=== PATIENT | female | born 1990 | race Caucasian/White ===

== ENCOUNTER → 2020-06-10 14:22 | Outpatient (CLI) | payer OTHER, SELFPAY ==
--- NOTE | ~2020-06-10 | US_ITS ---
EXAMINATION: US pelvic complete DATE: 06/10/2020 14:38 INDICATION: Pelvic pain. IUD. Comparison:03/13/2018 TECHNIQUE: Multiple transabdominal and endovaginal sonographic images of the pelvis performed. FINDINGS: The uterus measures 8.3 x 3.2 x 4.5 cm. IUD present in the endometrium. The endometrial com plex measures 4 mm. The right ovary measures 2.6 x 2.2 x 2.8 cm and the left ovary measures 3.3 x 2.2 x 3.1 cm. There ar e small follicles in each ovary. There is no free fluid in the pelvis. There are no abnormal masses seen on either side. IMPRESSION: 1. Unremarkable pelvic ultrasound. IUD in expected position. Reviewed, dictated and finalized at location B. LE MECH[employer]IC
== END ==
PROVIDERS: Visit Provider Nurse Practitioner
DX: R10.2 Pelvic and perineal pain (principal); Z97.5 Presence of (intrauterine) contraceptive device
CPT/HCPCS: 76856

== ENCOUNTER → 2020-09-26 10:07 | Outpatient (CLI) | payer OTHER, SELFPAY ==
--- NOTE | ~2020-09-26 | US_ITS ---
EXAMINATION: US soft tissue UE LT DATE: 09/26/2020 10:42 INDICATION: Bruising and lump at the anterior mid left forearm TECHNIQUE: Multiple grayscale and Doppler ultrasound images of the region of concern at the anterior mid left forearm were obtained. COMPARISON: None FINDINGS: 1-2 mm hypoechoic lesion at the region of concern reportedly at the site of prior surgery which could represent mild residual scarring. Otherwise normal appearance to the subcutaneous fat and underlying musculature. No shadowing foreign bodies identified. No other abnormal masses or fluid collections IMPRESSION: 1. 1-2 mm hypoechoic lesion likely residual scarring at the site of a reported prior implantation and explantation of a small metallic disc. Otherwise unremarkable study with no retained foreign bodies, abnormal masses or fluid collections identified. Reviewed, dictated and finalized at location A. IMPRESSION: 1. 1-2 mm hypoechoic lesion likely residual scarring at the site of a reported prior implantation and explantation of a small metallic disc. Otherwise unremar kable study with no retained foreign bodies, abnormal masses or fluid collectio ns identified.
== END ==
DX: R22.32 Localized swelling, mass and lump, left upper limb (principal)
CPT/HCPCS: 76882

== ENCOUNTER 2023-03-12 11:09 | Emergency (ER) | payer BC, SELFPAY ==
--- NOTE | ~2023-03-12 | CT_ITS ---
CT of the Abdomen and Pelvis: Indication: Abdominal pain Technique: 2.5 mm axial scans were obtained through the abdomen and pelvis following intravenous adm inistration of 100 cc of Omnipaque 350. Dose reduction technique was used on this scan by utilizing a utomated exposure control and iterative reconstruction technique. The dose-length product (DLP) was 2 65.25 mGy-cm. COMPARISON: 02/17/2017 Findings: Scans through the lung bases are unremarkable. The liver, spleen, pancreas, gallbladder, adrenals and kidneys are within normal limits. No evidence of aortic aneurysm. No lymphadenopathy. No bowel obstruction or bowel wall thickening. There is no evidence to suggest acute appendicitis. Images through the pelvis were performed. Urinary bladder unremarkable. IUD in place. No definite adn exal mass seen. Trace free fluid in the pelvis is nonspecific. Impression: No significant abnormalities seen. IUD in place. Reviewed, dictated and finalized at [facility]. Impression: No significant abnormalities seen. IUD in place.
[2023-03-12 11:24] VITALS: BP 123/76; PULSE 80; RESP 16; TEMP 36.4; O2SAT 100
[2023-03-12 12:13] LABS: Basophils Percent Auto 0.7 % (0.2-1.2); Eosinophils Absolute Auto 0.2 K/mm3 (0-0.3); Eosinophils Percent Auto 4.6 % (0-4.4); Hematocrit 41.2 % (37.0-47.0); Hemoglobin 13.4 g/dL (12.0-15.0); Immature Granulocyte Absolute 0.01 K/mm3 (0.00-0.031); Immature Granulocyte Percent A 0.2 % (0-0.5); Lymphocytes Absolute Auto 1.87 K/mm3 (0.9-3.2); Lymphocytes Percent Auto 40.6 % (18.3-44.2); Mean Corpuscular HGB Conc 32.5 g/dl (32-36); Mean Corpuscular Hemoglobin 28.4 pg (26-34); Mean Corpuscular Volume 87.3 fl (80-100); Mean Platelet Volume 10.7 fl (7.4-10.4); Monocytes Absolute Auto 0.4 K/mm3 (0.1-0.6); Monocytes Percent Auto 7.8 % (2.6-8.5); Neutrophils Absolute Auto 2.1 K/mm3 (1.3-6.7); Neutrophils Percent Auto 46.1 % (45.5-73.1); Platelet Count Result 229 k/mm3 (150-375); Red Blood Count 4.72 M/mm3 (4.2-5.4); Red Cell Distribution Width 12.5 % (11.5-14.5); White Blood Count 4.6 K/mm3 (4.5-10.0)
[2023-03-12 12:19] LABS: Appearance Urine Cloudy (Clear); Bacteria Urine 1+ /hpf; Bilirubin Urine Negative (Negative); Color Urine Yellow (Yellow); Glucose Urine UA Negative (Negative); Ketones Urine Negative (Negative); Leukocyte Esterase Ur 2+ LEU/UL (Negative); Nitrate Urine Negative (Negative); Non Pathogenic Casts 0-2; Protein Urine Trace mg/dL (Negative); RBC Urine 0-2 /hpf (0-2); Specific Grav Ur 1.029 (1.001-1.035); Squamous Epithelial Cell Urine Few /hpf (Few); WBC Urine >100 /hpf; pH Urine 5.5 (5.0-9.0)
[2023-03-12 12:23] LABS: Alanine Aminotransferase 22 U/L (6-35); Albumin Level 4.3 g/dL (3.5-5.1); Alkaline Phosphatase 65 U/L (38-126); Anion Gap 8 mmol/L (8-16); Aspartate Amino Transferase 27 U/L (14-36); Bilirubin,Total 0.9 mg/dL (0.2-1.3); Blood Urea Nitrogen 23 mg/dL (7-17); Calcium 8.7 mg/dL (8.4-10.2); Carbon Dioxide 27 mmol/L (22-30); Chloride 107 mmol/L (98-107); Estimated CRCL calculation 89 ml/min; Estimated Glomerular Filt Rate > 60; Glucose 92 mg/dL (65-110); Lipase 111 U/L (23-300); Potassium 3.6 mmol/L (3.4-5.0); Sodium 142 mmol/L (137-145)
[2023-03-12 12:44] LABS: Add Urine Microscopic? YES
--- NOTE | 2023-03-12 13:37 | ED.GENADULT ---
HPI - General Adult General Chief complaint: Abdominal Pain Stated complaint: Abdominal Pain Time Seen by Provider: 03/12/23 11:46 Source: patient Mode of arrival: ambulatory Limitations: no limitations History of Present Illness HPI narrative: This is a 32-year-old female who presents to the ED with chief complaint of upper abdominal pain ongoing for the past 2 days. Patient reports the pain is in the left upper quadrant and epigastrium area. She reports she has had this in the past and her doctors thought it was may be acid reflux. She reports no relief with Tums or other antacids. She states her pain is specifically worse after eating food. She does endorse nausea and vomiting. States she had 2 episodes of emesis yesterday and is currently nauseous. Patient states when this is happened in the past it has self resolved. She also endorses a little bit of constipation states her last bowel movement was Monday night. Denies fevers, chills, chest pain, shortness of breath, urinary symptoms, or cough. Related Data Home Medications Medication Instructions Recorded Confirmed cholecalciferol (vitamin D3) 10 10 mcg PO DAILY 01/13/23 02/17/23 mcg (400 unit) capsule (Vitamin D3) loratadine 10 mg tablet (Claritin) 10 mg PO DAILY 01/13/23 02/17/23 methylphenidate HCl 10 mg tablet 10 mg PO BID 01/13/23 02/17/23 vitamin B12 0.5 mg-folic acid 1 mg 1 tablet PO DAILY 01/13/23 02/17/23 tablet Allergies Allergy/AdvReac Type Severity Reaction Status Date / Time amoxicillin Allergy Severe Hives Verified 03/12/23 12:10 Sulfa (Sulfonamide Allergy Severe Hives Verified 03/12/23 12:10 Antibiotics) latex Allergy Mild HIVES Verified 03/12/23 12:10 Review of Systems Review of Systems: All systems as dictated in [facility] Past Medical History Medical History (Updated 03/12/23 @ 14:57 by Kavon Zabala PA-C) History of temporomandibular joint syndrome 2020 had bilateral replacement Surgical History Surgical History History of ankle surgery (2010) x2. 2010 & 2011 History of tonsillectomy Family History Family History (Updated 08/11/23 @ 11:03 by Corinne Gandhi APRN) Mother Hypothyroidism Sibling Hypothyroidism Other Hypothyroidism Grandparent Hypertension Social History Social History (Updated 02/17/23 @ 11:04 by Corinne Gandhi APRN) Smoking status: Never smoker Alcohol intake: current Alcohol use details: occasional, monthly Substance use: never Lack of Transportation: No Lack of Food: Never True Current Housing: I Have Housing Concerned About Future Housing: No Difficulty Paying Gas/Electric Bills: No Difficulty Paying for Meds: No Currently Unemployed: No Education: Bachelor's Degree Difficulty w/ Childcare or Family Care: No Occupation/Education: occupation 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 HEAD: Normocephalic, atraumatic. EYES: PERRLA and EOMI. ENT: Nares clear, no rhinorrhea or epistaxis. Mucous membranes moist. Oropharynx without tonsillar hypertrophy exudate or other lesions. NECK: Supple. No adenopathy or masses. CHEST: No respiratory distress. Clear to auscultation. No wheezes rales or rhonchi HEART: Regular rate and rhythm. No murmur heard. Normal peripheral pulses. ABDOMEN: Left upper quadrant and epigastric tenderness most prominent. She also has a bit of right upper quadrant tenderness. Soft, nondistended, normal active bowel sounds. MSK: Normal range of motion. No edema. SKIN: Warm, dry, no rash. NEURO: Alert and oriented x3. No focal deficits. PSYCH: Normal mood and affect. Course Vital Signs Vital signs: Vital Signs Temperature 97.6 F 03/12/23 11:24 Pulse Rate 80 03/12/23 11:24 Respiratory Rate 16 03/12/23 11:24 Blood Pressure 123/76 09
[2023-03-12] MEDS: ONDANSETRON INJ 4 MG/2 ML VIAL IV PUSH (13:59)
[2023-03-12 14:14] VITALS: BP 95/73; PULSE 64; RESP 20; O2SAT 100
[2023-03-12 14:57] VITALS: BP 126/63; PULSE 54; RESP 20; O2SAT 100
== END 2023-03-12 15:00 | disposition home or self-care (01) ==
PROVIDERS: Emergency Medicine; Emergency Provider Physician Assistant; PCP Family Medicine Adolescent Medicine
DX: K29.70 Gastritis, unspecified, without bleeding (principal); N39.0 Urinary tract infection, site not specified; Z96.698 Presence of other orthopedic joint implants
CPT/HCPCS: 36415; 74177; 80053; 81001; 81025; 83690; 85025; 87086; 87088; 96374; 99284; J2405; Q9967

== ENCOUNTER 2023-11-15 14:45 | Outpatient (CLI) | payer BC, SELFPAY ==
--- NOTE | ~2023-11-15 | US_ITS ---
EXAMINATION: US pelvic complete DATE: 11/15/2023 15:02 INDICATION: Postcoital vaginal bleeding. TECHNIQUE: Multiple transabdominal sonographic images of the pelvis were obtained. COMPARISON: CT abdomen and pelvis 03/12/2023 FINDINGS: The uterus measures 4.9 x 3.1 x 5.0 cm. There is no free fluid in the pelvis. The endometrial complex measures 3 mm in thickness. There is an intrauterine device in expected position. The right ovary me asures 2.8 x 2.6 x 2.8 cm. The left ovary measures 2.6 x 1.5 x 2.4 cm. IMPRESSION: 1. No etiology for the patient's symptoms. 2. Intrauterine device in expected position. Reviewed, dictated and finalized at location A.
== END 2023-11-15 14:46 ==
PROVIDERS: PCP Family Medicine Adolescent Medicine; Visit Provider Nurse Practitioner
DX: N93.0 Postcoital and contact bleeding (principal); Z97.5 Presence of (intrauterine) contraceptive device
CPT/HCPCS: 76856

== ENCOUNTER 2023-12-07 00:22 | Day surgery (SDC) | payer BC, SELFPAY ==
[2023-11-16 14:59] VITALS: BMI 21.6
--- NOTE | 2023-12-06 09:59 | SUR.PREOP ---
Patient arrived to unit for procedure. Patient states she completed all of the prep medications per instructions. Patient states she did not have a bowel movement until 0500 on 12/06/23. Her bowel movements are liquid brown with some substance to them. I talked to Dr. Huddleston and he requested the patient repeat the same bowel prep today and remain on clear liquid diet 12/06/23. Patient was rescheduled for 12/07/23.
[2023-12-07 13:36] VITALS: BP 104/75; PULSE 79; RESP 18; TEMP 36.3; O2SAT 100
[2023-12-07] MEDS: LACTATED RINGERS 1,000 ML 150 ML IV CONT (13:57)
--- NOTE | 2023-12-07 14:15 | WPDANESEPPF ---
Anes - Initial Pre Proc Eval Procedure: Operation Date: 12/07/23 14:30 Proposed Procedures p Esophagogastroduodenoscopy & Colonoscopy - Paul John MD Date/Time: 12/07/23 14:15 Surgeon: Paul John MD Pre Op Diagnosis: Epigastric pain, Gen. Abd. pain, Constipation Patient Data Age: 33 Gender: F Height: 1.65 m Weight: 56.3 kg Last Vital Signs Temp 97.3 F L 12/07/23 13:36 Pulse 79 12/07/23 13:36 Resp 18 12/07/23 13:36 BP 104/75 12/07/23 13:36 Pulse Ox 100 12/07/23 13:36 O2 Del Method Room Air 12/07/23 13:36 Allergies Allergy/AdvReac Type Severity Reaction Status Date / Time amoxicillin Allergy Severe Hives Verified 12/07/23 13:30 Sulfa (Sulfonamide Allergy Severe Hives Verified 12/07/23 13:30 Antibiotics) latex Allergy Mild HIVES Verified 12/07/23 13:30 Home Medications Medication Instructions Recorded Confirmed Type cholecalciferol (vitamin D3) 10 10 mcg PO DAILY 01/13/23 11/16/23 History mcg (400 unit) capsule (Vitamin D3) vitamin B12 0.5 mg-folic acid 1 mg 1 tablet PO DAILY 01/13/23 11/16/23 History tablet cetirizine 10 mg tablet (Zyrtec) 10 mg PO DAILY 11/16/23 11/16/23 History dextroamphetamine-amphetamine 10 10 mg PO DAILY 11/16/23 11/16/23 History mg tablet hydroxyzine HCl 25 mg tablet 25 mg PO HS 11/16/23 11/16/23 History Patient hx anesthesia problems: none Family hx anesthesia problems: none Results Review: All pre-operative results and documents have been reviewed as part of the pre-operative evaluation. [facility] Past Medical History Medical History (Updated 04/24/23 @ 13:13 by Corinne Gandhi APRN) History of temporomandibular joint syndrome 2020 had bilateral replacement Surgical History Surgical History History of ankle surgery (2010) x2. 2010 & 2011 History of tonsillectomy Family History Family History (Updated 02/17/23 @ 11:03 by Corinne Gandhi APRN) Mother Hypothyroidism Sibling Hypothyroidism Other Hypothyroidism Grandparent Hypertension Social History Social History (Updated 02/17/23 @ 11:04 by Corinne Gandhi APRN) Smoking status: Never smoker Alcohol intake: current Alcohol use details: occasional, monthly Substance use: never Lack of Transportation: No Lack of Food: Never True Current Housing: I Have Housing Concerned About Future Housing: No Difficulty Paying Gas/Electric Bills: No Difficulty Paying for Meds: No Currently Unemployed: No Education: Bachelor's Degree Difficulty w/ Childcare or Family Care: No Living arrangements: alone Occupation/Education: occupation 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 Informed Consent: The patient's anesthetic plan and its attendant risks and benefits were discussed with the patient/family/POA. Questions were solicited and answers provided to the satisfaction of the patient/family/POA.
--- NOTE | 2023-12-07 14:18 | PM.HPGS ---
History of Present Illness History of Present Illness Consent: Risks, benefits, and alternatives have been discussed and questions answered. Patient agrees to proceed with procedure. Chief complaint: Epigastric pain, Gen. Abd. pain, Constipation Narrative: Hedy Khan is a 33 year old female with intermittent epigastric pain, also constipation for almost 10 years, never had scopes. Review of Systems Review of Systems: All systems reviewed & are unremarkable except as noted in HPI and below PMFSH Past Medical History Medical History (Updated 04/24/23 @ 13:13 by Corinne Gandhi APRN) History of temporomandibular joint syndrome 2020 had bilateral replacement Surgical History Surgical History History of ankle surgery (2010) x2. 2010 & 2011 History of tonsillectomy Family History Family History (Updated 02/17/23 @ 11:03 by Corinne Gandhi APRN) Mother Hypothyroidism Sibling Hypothyroidism Other Hypothyroidism Grandparent Hypertension Social History Social History (Updated 02/17/23 @ 11:04 by Corinne Gandhi APRN) Smoking status: Never smoker Alcohol intake: current Alcohol use details: occasional, monthly Substance use: never Lack of Transportation: No Lack of Food: Never True Current Housing: I Have Housing Concerned About Future Housing: No Difficulty Paying Gas/Electric Bills: No Difficulty Paying for Meds: No Currently Unemployed: No Education: Bachelor's Degree Difficulty w/ Childcare or Family Care: No Living arrangements: alone Occupation/Education: occupation 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 Spiritual care concerns: No Meds Home Medications and Allergies Home Medications Medication Instructions Recorded Confirmed Type cholecalciferol (vitamin D3) 10 10 mcg PO DAILY 01/13/23 11/16/23 History mcg (400 unit) capsule (Vitamin D3) vitamin B12 0.5 mg-folic acid 1 mg 1 tablet PO DAILY 01/13/23 11/16/23 History tablet cetirizine 10 mg tablet (Zyrtec) 10 mg PO DAILY 11/16/23 11/16/23 History dextroamphetamine-amphetamine 10 10 mg PO DAILY 11/16/23 11/16/23 History mg tablet hydroxyzine HCl 25 mg tablet 25 mg PO HS 11/16/23 11/16/23 History Allergies Allergy/AdvReac Type Severity Reaction Status Date / Time amoxicillin Allergy Severe Hives Verified 12/07/23 13:30 Sulfa (Sulfonamide Allergy Severe Hives Verified 12/07/23 13:30 Antibiotics) latex Allergy Mild HIVES Verified 12/07/23 13:30 Vital Signs Vital Signs - 24 hr 12/07/23 13:36 Temperature 97.3 F L Pulse Rate 79 Respiratory Rate 18 Blood Pressure 104/75 Pulse Oximetry 100 Oxygen Delivery Room Air Exam Const: General: comfortable and no acute distress HENMT: Face/Nose/Sinus: Normal nares present Eyes: General: appearance normal, both eyes and all related structures Neck: Neck: no JVD Resp: Auscultation: clear to auscultation bilaterally Cardio: Rate: regular rate Rhythm: regular rhythm GI: Inspection: non-distended GI Palp: Yes Soft to palpation Skin: General skin exam: normal color Neuro: General: gait normal Speech: normal speech Extrem: General: normal to inspection Psych: Mental Status: mental status grossly normal Assessment and Plan Assessment and plan (1) Constipation: Code(s): K59.00 - Constipation, unspecified Status: Acute Assessment and Plan: colonoscopy (2) Epigastric abdominal pain: Code(s): R10.13 - Epigastric pain Status: Acute Assessment and Plan: egd with bx
--- NOTE | 2023-12-07 14:36 | SUR.OPER ---
EGD ended at 1432, colon began at 1437
[2023-12-07 14:50] VITALS: BP 101/70; PULSE 75; RESP 23; O2SAT 99
[2023-12-07 15:00] VITALS: BP 106/59; PULSE 62; RESP 20; O2SAT 100
[2023-12-07 15:10] VITALS: BP 117/66; PULSE 57; RESP 20; O2SAT 100
== END 2023-12-07 15:23 | disposition home or self-care (01) ==
PROVIDERS: PCP Family Medicine Adolescent Medicine; Visit Provider Internal Medicine Gastroenterology
PROC: 0DJ08ZZ Inspection of Upper Intestinal Tract, Via Natural or Artificial Opening Endoscopic (ICD-10-PCS; CPT 43235; principal; 2023-12-07 14:30)
DX: K29.70 Gastritis, unspecified, without bleeding (principal); K64.8 Other hemorrhoids; K59.00 Constipation, unspecified; Z98.890 Other specified postprocedural states
CPT/HCPCS: 43239; 45378; 88305; J2704; J7120

== ENCOUNTER 2024-03-05 01:05 | Emergency (ER) | payer BC, SELFPAY ==
[2024-03-05 01:06] VITALS: BP 133/90; PULSE 74; RESP 18; TEMP 36.7; O2SAT 98
[2024-03-05 02:02] LABS: Add Urine Microscopic? NO; Appearance Urine Clear (Clear); Bilirubin Urine Negative (Negative); Blood Urine Negative (Negative); Color Urine Yellow (Yellow); Glucose Urine UA Negative (Negative); Ketones Urine Trace mg/dL (Negative); Leukocyte Esterase Ur Negative LEU/UL (Negative); Nitrate Urine Negative (Negative); Protein Urine Negative (Negative); Specific Grav Ur 1.022 (1.001-1.035); Urobilinogen Urine 0.2 mg/dL (<2.0); pH Urine 5.5 (5.0-9.0)
[2024-03-05 03:49] LABS: Urine Pregnancy Test Negative
[2024-03-05 03:50] LABS: Pregnancy On Board Control Positive
[2024-03-05] MEDS: ONDANSETRON INJ 4 MG/2 ML VIAL IV PUSH (04:09)
[2024-03-05] MEDS: SODIUM CHLORIDE 0.9% IV 1,000 ML 999 ML IV CONT (04:09)
[2024-03-05 04:10] LABS: Basophils Absolute Auto 0.1 K/mm3 (0.0-0.1); Basophils Percent Auto 0.6 % (0.2-1.2); Eosinophils Absolute Auto 0.2 K/mm3 (0-0.3); Eosinophils Percent Auto 2.8 % (0-4.4); Hemoglobin 12.7 g/dL (12.0-15.0); Immature Granulocyte Absolute 0.02 K/mm3 (0.00-0.031); Immature Granulocyte Percent A 0.2 % (0-0.5); Lymphocytes Absolute Auto 1.72 K/mm3 (0.9-3.2); Lymphocytes Percent Auto 21.1 % (18.3-44.2); Mean Corpuscular HGB Conc 34.3 g/dl (32-36); Mean Corpuscular Hemoglobin 28.7 pg (26-34); Mean Corpuscular Volume 83.5 fl (80-100); Mean Platelet Volume 10.1 fl (7.4-10.4); Monocytes Absolute Auto 0.6 K/mm3 (0.1-0.6); Monocytes Percent Auto 7.4 % (2.6-8.5); Neutrophils Absolute Auto 5.5 K/mm3 (1.3-6.7); Neutrophils Percent Auto 67.9 % (45.5-73.1); Platelet Count Result 226 k/mm3 (150-375); Red Blood Count 4.43 M/mm3 (4.2-5.4); Red Cell Distribution Width 12.9 % (11.5-14.5); White Blood Count 8.1 K/mm3 (4.5-10.0)
[2024-03-05 04:22] LABS: Alanine Aminotransferase 21 U/L (6-35); Albumin Level 4.1 g/dL (3.5-5.1); Alkaline Phosphatase 48 U/L (38-126); Anion Gap 8 mmol/L (4-12); Aspartate Amino Transferase 27 U/L (14-36); Bilirubin,Total 1.2 mg/dL (0.2-1.3); Blood Urea Nitrogen 15 mg/dL (7-17); Calcium 8.8 mg/dL (8.4-10.2); Carbon Dioxide 25 mmol/L (22-30); Chloride 103 mmol/L (98-107); Estimated CRCL calculation 88 ml/min; Estimated Glomerular Filt Rate > 60; Glucose 97 mg/dL (65-110); Lipase 74 U/L (23-300); Sodium 136 mmol/L (137-145)
[2024-03-05 04:48] LABS: Serum Qual hCG Negative
[2024-03-05 04:49] LABS: SPREG INTERNAL CONTROL Positive
[2024-03-05] MEDS: KETOROLAC 15 MG/ML VIAL (*BKC) IV PUSH (05:07)
--- NOTE | 2024-03-05 05:07 | ED.ABDPAIN ---
HPI - Abdominal Pain General Chief Complaint: Abdominal Pain Stated Complaint: abd pain Time Seen by Provider: 03/05/24 03:39 History of Present Illness HPI narrative: Patient is 33-year-old female who presents to the emergency department this morning complaining of left upper quadrant abdominal pain. Patient states that she has also been having some nausea and vomiting which started around 8:00 p.m. last night. Patient states that she has been having this pain in her left upper quadrant on and off for years and has had multiple CT scans, an MRI, and upper endoscopy and colonoscopy to try and figure out what was causing this pain and no one could figure out the reason. Patient states that she gets that at random times no one can ever figure out the cause. Patient states that she has some Zofran at home and took some for the nausea but feels as though she vomited it back up. Denies any fevers or chills at home. No additional symptoms or concerns at this time. Related Data Home Medications Medication Instructions Recorded Confirmed cholecalciferol (vitamin D3) 10 10 mcg PO DAILY 01/13/23 02/23/24 mcg (400 unit) capsule (Vitamin D3) vitamin B12 0.5 mg-folic acid 1 mg 1 tablet PO DAILY 01/13/23 02/23/24 tablet cetirizine 10 mg tablet (Zyrtec) 10 mg PO DAILY 11/16/23 02/23/24 dextroamphetamine-amphetamine 10 10 mg PO DAILY 11/16/23 02/23/24 mg tablet hydroxyzine HCl 25 mg tablet 25 mg PO HS 11/16/23 02/23/24 Allergies Allergy/AdvReac Type Severity Reaction Status Date / Time amoxicillin Allergy Severe Hives Verified 02/23/24 09:33 Sulfa (Sulfonamide Allergy Severe Hives Verified 02/23/24 09:33 Antibiotics) latex Allergy Mild HIVES Verified 02/23/24 09:33 Review of Systems Review of Systems: All systems are reviewed and are negative unless stated otherwise in the HPI. [facility] Past Medical History Medical History History of temporomandibular joint syndrome 2020 had bilateral replacement Surgical History Surgical History History of ankle surgery (2010) x2. 2010 & 2012 History of tonsillectomy Family History Family History Mother Hypothyroidism Sibling Hypothyroidism Other Hypothyroidism Grandparent Hypertension Social History Social History Smoking status: Never smoker Alcohol intake: current Alcohol use details: occasional, monthly Substance use: never Lack of Transportation: No Lack of Food: Never True Current Housing: I Have Housing Concerned About Future Housing: No Difficulty Paying Gas/Electric Bills: No Difficulty Paying for Meds: No Currently Unemployed: No Education: Bachelor's Degree Difficulty w/ Childcare or Family Care: No Living arrangements: alone Occupation/Education: occupation 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 HEENT: PERRL, no rhinorrhea, no post nasal drip, oropharynx clear. Cardiovascular: Regular rate and rhythm, no murmurs, rubs or gallops, no peripheral edema. Respiratory: Clear to auscultation bilaterally, no tachypnea, no wheezing, no rhonchi, no rubs, no respiratory distress. Abdomen: Soft, nontender, nondistended, no rebound, no guarding, no peritoneal signs. Musculoskeletal: No joint swelling or deformity, normal muscle tone. Skin: No rashes or petechia, no signs of infection. Neurological: Alert and oriented to person, place, and time. Follows all commands. No focal deficits, speech is clear and fluent. Course Vital Signs Vital signs: Vital Signs Temperature 98.0 F 03/05/24 01:06 Pulse Rate 74 03/05/24 01:06 Respiratory Rate 18 03/05/24 01:06 Blood Pressu
[2024-03-05 05:11] VITALS: BP 122/76; PULSE 81; RESP 18; O2SAT 100
== END 2024-03-05 05:12 | disposition home or self-care (01) ==
PROVIDERS: Emergency Provider Emergency Medicine; PCP Family Medicine Adolescent Medicine
DX: R10.12 Left upper quadrant pain (principal); R11.2 Nausea with vomiting, unspecified; Z96.698 Presence of other orthopedic joint implants
CPT/HCPCS: 36415; 80053; 81003; 81025; 83690; 84703; 85025; 96361; 96374; 96375; 99284; J1885; J2405; J7030

== ENCOUNTER 2024-04-17 12:43 | Outpatient (CLI) | payer BC, SELFPAY ==
--- NOTE | ~2024-04-17 | XR_ITS ---
EXAMINATION: XR chest 2V 04/17/2024 13:23 INDICATION: Left upper quadrant pain PROCEDURE: 2 view chest COMPARISON: No prior studies for comparison. FINDINGS: The lungs are clear. The cardiomediastinal silhouette is within normal limits. There are no pleural effusions. There is no pneumothorax suspected. IMPRESSION: 1: NO ACUTE CARDIOPULMONARY DISEASE. Reviewed, dictated and finalized at location B.
--- NOTE | ~2024-04-17 | CT_ITS ---
EXAMINATION: CTA abdomen DATE: 04/17/2024 13:29 INDICATION: Generalized abdominal pain. TECHNIQUE: Computed tomographic angiography (CTA) of the abdomen was performed with 100 mL Omnipaque- 350 intravenous contrast. Automated exposure control and iterative reconstruction technique were empl oyed. The dose-length product was 147.77 mGy-cm. Maximum intensity projection 3D-reconstructions of t he aorta and other arteries were constructed by the technologist on a separate workstation. COMPARISON: CT abdomen pelvis 03/12/2023 FINDINGS: The visualized portions of the lung bases are clear without pneumonia or pleural effusion. The heart size is normal. No pericardial effusion. The liver, gallbladder, spleen, pancreas, adrenal glands, and kidneys are normal. There are no dilated loops of bowel. Abdominal aorta is normal in justin iber. There is no significant stenosis of celiac axis, superior mesenteric artery, the renal arteries , or inferior mesenteric artery. There are no pathologically enlarged lymph nodes. There is no free i ntraperitoneal fluid. The bones are unremarkable. IMPRESSION: 1. No etiology for the patient's symptoms. Reviewed, dictated and finalized at location A.
== END 2024-04-17 12:44 | disposition home or self-care (01) ==
LOC: MICIMG 12:44
PROVIDERS: PCP Family Medicine Adolescent Medicine; Visit Provider Family Medicine
DX: R10.84 Generalized abdominal pain (principal); R10.12 Left upper quadrant pain
CPT/HCPCS: 71046; 74175; Q9967

== ENCOUNTER 2024-06-17 09:05 | Outpatient (CLI) | payer BC, SELFPAY ==
--- NOTE | ~2024-06-17 | NM_ITS ---
EXAMINATION: NM hepatobiliary wo pharm DATE: 06/17/2024 13:14 INDICATION: Upper abdominal pain COMPARISON: None. TECHNIQUE: 4.7 mCi Tc-99m mebrofenin (Choletec) was administered intravenously. Scintigraphic images of the abdomen were obtained for one hour. At the 1 hour time point, the patient drank 8 oz Ensure, and imaging was continued for 60 minutes. Gallbladder ejection fraction was calculated by the technol ogist. FINDINGS: There is normal clearance of radiotracer from the blood pool. There is homogeneous tracer u ptake by the liver. Activity progresses to the bowel and gallbladder. The gallbladder ejection fract ion (GBEF) is 26%. Note that with this technique, normal GBEF >= 33%. IMPRESSION: 1. Gallbladder ejection fraction is below normal range which could be seen with gallbladder dysfunct ion or chronic cholecystitis in the appropriate clinical setting. Reviewed, dictated and finalized at location A. R TRUCKER IMPRESSION: 1. Gallbladder ejection fraction is below normal range which could be seen wit h gallbladder dysfunction or chronic cholecystitis in the appropriate clinical setting.
== END 2024-06-17 09:06 | disposition home or self-care (01) ==
PROVIDERS: PCP Family Medicine Adolescent Medicine; Visit Provider Nurse Practitioner Family
DX: R93.2 Abnormal findings on diagnostic imaging of liver and biliary tract (principal); R10.10 Upper abdominal pain, unspecified; R11.2 Nausea with vomiting, unspecified
CPT/HCPCS: 78226; A9537